=== PATIENT | female | born 1960 | race Caucasian/White ===

== ENCOUNTER 2017-04-19 08:58 | Emergency (ER) | payer BC ==
[2017-04-19 09:11] VITALS: BP 141/73
--- NOTE | 2017-04-19 09:35 | UC ---
Respiratory Complaint HPI - HPI Summary HPI Summary: Sudden onset fever and shaking chills 2 nights ago about midnight; also has coughing, nasal congestion, st, and 2 episodes of vomiting. Hx of COPD. - History of Current Complaint Chief Complaint: UCGeneralIllness Stated Complaint: HEADACHE FEVER VOMITING Time Seen by Provider: 04/19/17 09:22 Hx Obtained From: Patient ?: No Onset/Duration: Sudden Onset Timing: Constant Severity Initially: Moderate Severity Currently: Moderate Character: Cough: Productive Aggravating Factors: Deep Breaths, Recumbent Position Alleviating Factors: Bronchodilator Associated Signs And Symptoms: Positive: Wheezing, URI, Nasal Congestion - Allergies/Home Medications Allergies/Adverse Reactions: Allergies Allergy/AdvReac Type Severity Reaction Status Date / Time Naproxen [From Aleve] Allergy Severe RASH AND Verified 04/19/17 09:07 DIFF. BREATHING ADHESIVE FROM NICODERM PATCH AdvReac Mild Rash Uncoded 04/19/17 09:07 PMH/Surg Hx/FS Hx/Imm Hx Cardiovascular History: Hypertension Respiratory History: COPD, Asthma - Surgical History Surgical History: Yes Surgery Procedure, Year, and Place: ADRENAL GLAND TUMOR REMOVED. . APPENDECTOMY - Family History Known Family History: Positive: Hypertension - Social History Lives: With Family Alcohol Use: None Substance Use Type: None Smoking Status (MU): Current Every Day Smoker Type: Cigarettes Amount Used/How Often: 1/2 ppd Length of Time of Smoking/Using Tobacco: start age 15 Have You Smoked in the Last Year: Yes Cessation Counseling: Patient Advised to Stop - Immunization History Most Recent Influenza Vaccination: Jun 2013 Most Recent Tetanus Shot: remote Most Recent Pneumonia Vaccination: never Review of Systems Constitutional: Fever, Chills, Fatigue Skin: Negative Eyes: Negative ENT: Sore Throat, Nasal Discharge Respiratory: Cough Cardiovascular: Negative Gastrointestinal: Vomiting Genitourinary: Negative Motor: Negative Neurovascular: Negative Musculoskeletal: Negative Neurological: Negative Psychological: Negative Is Patient Immunocompromised?: No All Other Systems Reviewed And Are Negative: Yes Physical Exam Triage Information Reviewed: Yes Appearance: Ill-Appearing - acute illness, Obese Vital Signs: Initial Vital Signs Temp 99 F 04/19/17 09:08 Pulse 99 04/19/17 09:08 Resp 20 04/19/17 09:08 BP 141/73 04/19/17 09:08 Pulse Ox 100 12/10/17 09:08 Vital Signs Reviewed: Yes Eye Exam: Normal Eyes: Positive: Conjunctiva Clear ENT: Positive: Hearing grossly normal, Pharynx normal, Nasal congestion, TMs normal Dental Exam: Other - dentures Neck exam: Normal Neck: Positive: Supple, Nontender, No Lymphadenopathy Respiratory: Positive: Rhonchi - congested cough, Wheezing, Expiration Cardiovascular: Positive: Tachycardia, Murmur:Sys:Grade _?_/ - III Abdominal Exam: Other - exam limited by obesity Abdomen Description: Positive: Nontender Musculoskeletal Exam: Normal Neurological Exam: Normal Neurological: Positive: Alert Psychological Exam: Normal Skin Exam: Normal UC Diagnostic Evaluation - Laboratory O2 Sat by Pulse Oximetry: 100 Respiratory Course/Dx - Course Course Of Treatment: negative flu swab - Differential Dx/Diagnosis Provider Diagnoses: [id number] Discharge - Discharge Plan Condition: Stable Disposition: HOME Prescriptions: Albuterol 2.5MG/3ML (0.083%)* [Ventolin 2.5 MG/3 ML NEB.YOLY*] 2.5 mg INH Q6H PRN #40 neb.yoly PRN Reason: wheeze, cough Albuterol HFA INHALER* [Ventolin HFA Inhaler*] 1 - 2 puff INH Q4H PRN #1 mdi PRN Reason: wheeze, cough Patient Education Materials: Viral Syndrome (ED) Referrals: Jazmyne Oconnell PA [[employer]] - 5 Days Additional Instructions: Your flu swab was negative. You still have an [id number], however, so there is still a high chance you could have respiratory complications. Please see your primary care provider at the end of the week for a check-up.
== END 2017-04-19 10:05 | disposition home or self-care (01) ==
LOC: UCEAST 08:58
DX: J11.1 Influenza due to unidentified influenza virus with other respiratory manifestations (principal); F17.210 Nicotine dependence, cigarettes, uncomplicated; Z88.6 Allergy status to analgesic agent; I10 Essential (primary) hypertension; J44.9 Chronic obstructive pulmonary disease, unspecified
CPT/HCPCS: 87502; 99212; G0463

== ENCOUNTER 2017-09-02 19:13 | Emergency (ER) | payer BC ==
[2017-09-02] MEDS ORDERED: NS 0.9% 1000 ML* 1,000 ML IV ONE (20:13)
[2017-09-02] MEDS ORDERED: Aspirin 81 mg CHEW TAB* 81 MG TAB.CHEW PO ONE ×2 (20:13→20:20)
[2017-09-02] MEDS ORDERED: LORazepam TAB(*) 1 MG PO ONE (20:19)
--- NOTE | 2017-09-02 20:19 | ED ---
Palpitations / Dysrhythmia - HPI Summary HPI Summary: 57-year-old female with history of cardiac disease presents with 1 day worth of "heart racing". She states that she had an argument in the home the escalator last night about 2:30 AM and since that time she describes rapid heartbeat with occasional irregularity or skipping of beats. She now feels normal. She denies any chest pain or pressure and no shortness of breath. She denied any weakness however her states that she was feeling that way. She was feeling very anxious as well but that seems to have calmed down now as well. She does have a history of aortic valve replacement with a bovine valve. She is not on any blood thinner. She continues to smoke. She took a baby aspirin prior to coming to the ER. - History of Current Complaint Chief Complaint: EDChestPainROMI Time Seen by Provider: 09/02/17 20:03 - Allergy/Home Medications Allergies/Adverse Reactions: Allergies Allergy/AdvReac Type Severity Reaction Status Date / Time naproxen [From Aleve] Allergy Hives/Diff. Verified 09/02/17 19:23 Breathing/I tching ADHESIVE FROM NICODERM PATCH AdvReac Mild Rash Uncoded 09/02/17 19:23 Home Medications: Home Medications Aspirin EC TAB* [Ecotrin EC Low Dose 81 MG*] 81 mg PO DAILY 09/02/17 [History Confirmed 09/02/17] Bupropion XL* [Wellbutrin XL *] 150 mg PO QAM 09/02/17 [History Confirmed ] Citalopram TAB* [CeleXA TAB*] 40 mg PO QPM 09/02/17 [History Confirmed 09/02/17] Metoprolol Tartrate TAB* [Lopressor TAB*] 50 mg PO QAM 09/02/17 [History Confirmed 09/02/17] Simvastatin TAB(NF) [Zocor(NF)] 10 mg PO QPM 09/02/17 [History Confirmed ] PMH/Surg Hx/FS Hx/Imm Hx Previously Healthy: No - aortic valve replacement, hypertension, cardiac disease Endocrine/Hematology History: Reports: Other Endocrine/Hematological Disorders - Adrenal gland removed (left side?) Cardiovascular History: Reports: Hx Angina, Hx Hypertension - ON MEDICATION FOR , Hx Valvular Heart Disease - aortic valve relpaced 2013, Other Cardiovascular Problems/Disorders - HEART VALVE FUNCTIONING AT 20%- SEES DR. SIDHU FOR Denies: Hx Congestive Heart Failure, Hx Pacemaker/ICD Respiratory History: Reports: Hx Asthma - Symbicort, Hx Chronic Obstructive Pulmonary Disease (COPD) Denies: Other Respiratory Problems/Disorders History: Reports: Hx Kidney Infection - IN THE PAST, Other Problems/ Disorders - LEFT ADRENAL GLAND TUMOR REMOVED Sensory History: Reports: Hx Contacts or Glasses - reading Denies: Hx Hearing Aid Opthamlomology History: Reports: Hx Contacts or Glasses - reading Neurological History: Reports: Other Neuro Impairments/Disorders - HEADACHES DAILY Psychiatric History: Reports: Hx Depression - post-surgical - Surgical History Surgery Procedure, Year, and Place: ADRENAL GLAND TUMOR REMOVED. . APPENDECTOMY. LEFT FOOT - BONE REMOVAL. OPEN HEART SURGERY - VALVE REPLACEMENT Hx Anesthesia Reactions: No Infectious Disease History: No Infectious Disease History: Denies: Hx Clostridium Difficile, Hx Hepatitis, Hx Human Immunodeficiency Virus (HIV), Hx of Known/Suspected MRSA, Hx Shingles, Hx Tuberculosis, Hx Known/ Suspected VRE, Hx Known/Suspected VRSA, History Other Infectious Disease, Traveled Outside the [place] in Last 30 Days - Family History Known Family History: Positive: Hypertension - Social History Alcohol Use: None Substance Use Type: Reports: None Hx Tobacco Use: Yes Smoking Status (MU): Current Every Day Smoker Type: Cigarettes Amount Used/How Often: 1/2 ppd Length of Time of Smoking/Using Tobacco: start age 15 Have You Smoked in the Last Year: Yes Review of Systems Negative: Fever Positive: Palpitations. Negative: Chest Pain Negative: Shortness Of Breath, Cough Negative: Abdominal Pain, Vomiting, Diarrhea Negative: Arthralgia Positive: Weakness. Negative: Headache, Numbness Positive: Anxious. Negative: Depressed All Other Systems Reviewed And Are Negative: Yes Physical Exam Triage Information Reviewed: Yes Vital Signs On Initial Exam: Initial Vitals Temp Pulse Resp BP Pulse Ox 96.8 F 90 18 131/64 95 09/02/17 19:20 09/02/17 19:20 09/02/17 19:20 09/02/17 19:20 09/02/17 19:20 Vital Signs Reviewed: Yes Appearance: Positive: Well-Appearing, No Pain Distress, Well-Nourished Skin: Positive: Warm, Skin Color Reflects Adequate Perfusion, Dry Eyes: Positive: Normal, EOMI ENT: Positive: Normal ENT inspection Neck: Positive: Supple, Nontender, Other: - No JVD Cardiovascular: Positive: RRR, Murmur - Rumbling diastolic murmur Abdomen Description: Positive: Nontender, No Organomegaly Musculoskeletal: Positive: Normal, Strength/ROM Intact Neurological: Positive: Normal, Sensory/Motor Intact, Alert, Oriented to Person Place, Time, CN Intact II-III Psychiatric: Positive: Normal, Affect/Mood Appropriate. Negative: Anxious, Depressed AVPU Assessment: Alert Diagnostics - Vital Signs Vital Signs Temp Pulse Resp BP Pulse Ox 09/02/17 19:20 96.8 F 90 18 131/64 95 - Laboratory Result Diagrams: 09/02/17 20:07 09/02/17 20:07 Lab Statement: Any lab studies that have been ordered have been reviewed, and results considered in the medical decision making process. - Radiology CXR Xray Interpretation: No Acute Changes Radiology Interpretation Completed By: ED Physician - EKG EKG time 1909 Cardiac Rate: NL EKG Rhythm: Sinus Rhythm ST Segment: Non-Specific Ectopy: None EKG Interpretation: rate of 90, left bundle branch block. Re-Evaluation - Re-Evaluation First Eval Re-Evaluation Time: 22:23 Change: Improved - Symptoms resolved with oral Ativan Course/Dx - Course Course Of Treatment: Patient was situational stressor at home causing anxiety and resulting in fast heart rate. EKG and monitoring here showed no evidence for arrhythmia or tachycardia. He is feeling much better after Ativan. I will give her outpatient Vistaril for when necessary use. She is seeing her primary care physician on September 11. If she is having any palpitations in the interim suggested his Holter monitor. - Diagnoses Differential Diagnosis/HQI/PQRI: Positive: Chronic Obstructive Pulmonary Disease , Congestive Heart Failure, Hyperventilation, Medication Induced, Panic Disorder Provider Diagnoses: Anxiety reaction, Palpitations Discharge - Sign-Out/Discharge Documenting (check all that apply): Discharge/Admit/Transfer - Discharge Plan Condition: Improved Disposition: HOME Prescriptions: hydrOXYzine pamoate [Vistaril] 50 mg PO TID PRN #20 capsule PRN Reason: Anxiety Patient Education Materials: Anxiety (ED), Heart Palpitations (ED) Referrals: George SNOW,Rafi Mishra [Primary Care Provider] - Additional Instructions: Avoid the situational stressor at home. Return with chest pain, trouble breathing, worse or other concerns. See her doctor as scheduled on September 11 or call for an appointment sooner. If you're having palpitations her doctor may want to do a Holter monitor or event monitor. - Billing Disposition and Condition Condition: IMPROVED Disposition: HOME
[2017-09-02 20:36] LABS: ABS Basophils 0.2 10^3/ul (0-0.2); ABS Eosinophils 0.6 10^3/ul (0-0.6); ABS Lymphocytes 3.7 10^3/ul (1.0-4.8); ABS Monocytes 0.8 10^3/ul (0-0.8); ABS Neutrophils 8.6 10^3/ul (1.5-7.7); ABS Nucleated RBC 0 10^3/ul; Eosinophil % 4.1 % (0-6); Hematocrit 41 % (35-47); Hemoglobin 13.8 g/dl (12.0-16.0); Mean Corpuscular HGB Conc 34 g/dl (31-36); Mean Corpuscular Hemoglobin 31 pg (27-31); Mean Corpuscular Volume 91 fL (80-97); Mean Platelet Volume 8.8 um3 (7.4-10.4); Nucleated Red Blood Cells % 0; Platelet Count 215 10^3/ul (150-450); Red Blood Count 4.51 10^6/ul (4.0-5.4); Red Cell Distribution Width 14 % (10.5-15); White Blood Count 13.8 10^3/ul (3.5-10.8)
[2017-09-02 20:42] LABS: INR 1.04 (0.77-1.02)
[2017-09-02 22:55] VITALS: BP 139/77
--- NOTE | 2017-09-03 07:45 | RAD ---
HISTORY: Palpitation COMPARISONS: March 05, 2016 VIEWS: 1: frontal portable view of the chest at 10:11 PM FINDINGS: LINES AND TUBES: None. CARDIOMEDIASTINAL SILHOUETTE: The cardiomediastinal silhouette is stable. PLEURA: The costophrenic angles are sharp. No pleural abnormalities are noted. LUNG PARENCHYMA: The lungs are clear. ABDOMEN: The upper abdomen is clear. There is no subphrenic gas. BONES AND SOFT TISSUES: The patient is status post median sternotomy. 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 IMPRESSION: NO ACTIVE CARDIOPULMONARY DISEASE.
== END 2017-09-02 22:54 | disposition home or self-care (01) ==
LOC: ED 19:13
DX: R00.2 Palpitations (principal); F41.9 Anxiety disorder, unspecified; F17.210 Nicotine dependence, cigarettes, uncomplicated; Z86.79 Personal history of other diseases of the circulatory system; Z88.6 Allergy status to analgesic agent
CPT/HCPCS: 36415; 71045; 80053; 83605; 84443; 84484; 85025; 85610; 93005; 99283; A9270-GY

== ENCOUNTER 2017-10-04 21:50 | Inpatient (IN) | payer BC ==
[2017-10-04 22:44] LABS: ABS Basophils 0.2 10^3/ul (0-0.2); ABS Eosinophils 0.3 10^3/ul (0-0.6); ABS Lymphocytes 3.6 10^3/ul (1.0-4.8); ABS Monocytes 0.9 10^3/ul (0-0.8); ABS Neutrophils 8.4 10^3/ul (1.5-7.7); ABS Nucleated RBC 0 10^3/ul; Eosinophil % 2.1 % (0-6); Hematocrit 40 % (35-47); Hemoglobin 12.9 g/dl (12.0-16.0); Lymphocyte % 26.9 % (25-47); Mean Corpuscular HGB Conc 33 g/dl (31-36); Mean Corpuscular Hemoglobin 29 pg (27-31); Mean Corpuscular Volume 90 fL (80-97); Mean Platelet Volume 8.6 um3 (7.4-10.4); Nucleated Red Blood Cells % 0.1; Platelet Count 239 10^3/ul (150-450); Red Blood Count 4.43 10^6/ul (4.0-5.4); Red Cell Distribution Width 14 % (10.5-15); White Blood Count 13.4 10^3/ul (3.5-10.8)
[2017-10-04] MEDS ORDERED: ALPRAZolam TAB* 0.5 MG PO ONE (22:55)
[2017-10-04 23:00] LABS: INR 1.31 (0.77-1.02)
[2017-10-05] MEDS ORDERED: Furosemide IV* 10 MG/ML VIAL (40 MG) IV ONE (00:44)
--- NOTE | 2017-10-05 03:06 | ED ---
Ricki Metzger Julia, scribed for Alysa Palumbo MD on 10/04/17 at 2215 . Shortness of Breath - HPI Summary HPI Summary: This patient is a 57 year old F BIBA to [facility] with a chief complaint of SOB with exertion beginning this morning. Symptoms unchanged by nebulizer tx at home. Patient denies pain. PMhx of COPD. 2L of nasal cannula O2 placed by EMS. - History of Current Complaint Chief Complaint: EDShortnessOfBreath Time Seen by Provider: 10/04/17 22:04 Hx Obtained From: Patient Onset/Duration: Lasting Hours Timing: Constant Dyspnea At: Exertion Alleviating Factors: EMS Tx Associated Signs & Symptoms: Negative Related History: Similar Episode - Allergy/Home Medications Allergies/Adverse Reactions: Allergies Allergy/AdvReac Type Severity Reaction Status Date / Time bee venom protein (honey bee) Allergy Swelling Verified 10/04/17 22:05 Of Face,Lips,& Throat naproxen [From Aleve] Allergy Hives/Diff. Verified 10/04/17 22:05 Breathing/I tching adhesive from nicoderm Allergy Rash Uncoded 10/04/17 22:05 Home Medications: Home Medications Albuterol 2.5MG/3ML (0.083%)* [Ventolin 2.5 MG/3 ML NEB.YOLY*] 2.5 mg INH Q4H PRN 10/04/17 [History Confirmed 10/04/17] Albuterol HFA INHALER* [Ventolin HFA Inhaler*] 2 puff INH Q4H PRN 10/04/17 [ History Confirmed 10/04/17] Diazepam TAB(NF) [Valium TAB(NF)] 2 mg PO BID PRN 10/04/17 [History Confirmed ] PMH/Surg Hx/FS Hx/Imm Hx Endocrine/Hematology History: Reports: Other Endocrine/Hematological Disorders - Adrenal gland removed (left side?) Cardiovascular History: Reports: Hx Angina, Hx Hypertension - ON MEDICATION FOR , Hx Valvular Heart Disease - aortic valve relpaced 2013, Other Cardiovascular Problems/Disorders - HEART VALVE FUNCTIONING AT 20%- SEES DR. SIDHU FOR Denies: Hx Congestive Heart Failure, Hx Pacemaker/ICD Respiratory History: Reports: Hx Asthma - Symbicort, Hx Chronic Obstructive Pulmonary Disease (COPD) Denies: Other Respiratory Problems/Disorders History: Reports: Hx Kidney Infection - IN THE PAST, Other Problems/ Disorders - LEFT ADRENAL GLAND TUMOR REMOVED Sensory History: Reports: Hx Contacts or Glasses - reading Denies: Hx Hearing Aid Opthamlomology History: Reports: Hx Contacts or Glasses - reading Neurological History: Reports: Other Neuro Impairments/Disorders - HEADACHES DAILY Psychiatric History: Reports: Hx Depression - post-surgical - Surgical History Surgery Procedure, Year, and Place: ADRENAL GLAND TUMOR REMOVED. . APPENDECTOMY. LEFT FOOT - BONE REMOVAL. OPEN HEART SURGERY - VALVE REPLACEMENT Hx Anesthesia Reactions: No Infectious Disease History: No Infectious Disease History: Denies: Hx Clostridium Difficile, Hx Hepatitis, Hx Human Immunodeficiency Virus (HIV), Hx of Known/Suspected MRSA, Hx Shingles, Hx Tuberculosis, Hx Known/ Suspected VRE, Hx Known/Suspected VRSA, History Other Infectious Disease, Traveled Outside the [place] in Last 30 Days - Family History Known Family History: Positive: Hypertension - Social History Alcohol Use: None Substance Use Type: Reports: None Hx Tobacco Use: Yes Smoking Status (MU): Current Every Day Smoker Type: Cigarettes Amount Used/How Often: 1/2 ppd Length of Time of Smoking/Using Tobacco: start age 15 Have You Smoked in the Last Year: Yes Review of Systems Negative: Chest Pain Positive: Shortness Of Breath All Other Systems Reviewed And Are Negative: Yes Physical Exam - Summary Physical Exam Summary: VITAL SIGNS: Reviewed. GENERAL: Patient is a well-developed and nourished female who is lying comfortable in the stretcher. Patient is not in any acute respiratory distress. HEAD AND FACE: No signs of trauma. No ecchymosis, hematomas or skull depressions. No sinus tenderness. EYES: PERRLA, EOMI x 2, No injected conjunctiva, no nystagmus. EARS: Hearing grossly intact. Ear canals and tympanic membranes are within normal limits. MOUTH: Oropharynx within normal limits. NECK: Supple, trachea is midline, no adenopathy, no JVD, no carotid bruit, no c- spine tenderness, neck with full ROM. CHEST: Symmetric, no tenderness at palpation LUNGS: Clear to auscultation bilaterally. No wheezing or crackles. CVS: Regular rate and rhythm, S1 and S2 present, no murmurs or gallops appreciated. ABDOMEN: Soft, non-tender. No signs of distention. No rebound no guarding, and no masses palpated. Bowel sounds are normal. EXTREMITIES: FROM in all major joints, no edema, no cyanosis or clubbing. NEURO: Alert and oriented x 3. No acute neurological deficits. Speech is normal and follows commands. SKIN: Dry and warm Triage Information Reviewed: Yes Vital Signs On Initial Exam: Initial Vitals Temp Pulse Resp BP Pulse Ox 98.2 F 75 27 121/62 97 10/04/17 22:01 10/04/17 22:01 10/04/17 22:01 10/04/17 22:01 10/04/17 22:01 Vital Signs Reviewed: Yes Diagnostics - Vital Signs Vital Signs Temp Pulse Resp BP Pulse Ox 10/04/17 22:01 98.2 F 75 27 121/62 97 - Laboratory Lab Results: Lab Results 10/04/17 10/04/17 10/04/17 Range/Units 22:35 22:35 22:35 WBC 13.4 H (3.5-10.8) 10^3/ul RBC 4.43 (4.0-5.4) 10^6/ul Hgb 12.9 (12.0-16.0) g/dl Hct 40 (35-47) % MCV 90 (80-97) fL MCH 29 (27-31) pg MCHC 33 (31-36) g/dl RDW 14 (10.5-15) % Plt Count 239 (150-450) 10^3/ul MPV 8.6 (7.4-10.4) um3 Neut % (Auto) 62.9 (38-83) % Lymph % (Auto) 26.9 (25-47) % Archuleta % (Auto) 6.9 (0-7) % Eos % (Auto) 2.1 (0-6) % Baso % (Auto) 1.2 (0-2) % Absolute Neuts (auto) 8.4 H (1.5-7.7) 10^3/ul Absolute Lymphs (auto) 3.6 (1.0-4.8) 10^3/ul Absolute Monos (auto) 0.9 H (0-0.8) 10^3/ul Absolute Eos (auto) 0.3 (0-0.6) 10^3/ul Absolute Basos (auto) 0.2 (0-0.2) 10^3/ul Absolute Nucleated RBC 0 10^3/ul Nucleated RBC % 0.1 INR (Anticoag Therapy) 1.31 H (0.77-1.02) APTT 29.0 (26.0-36.3) seconds Sodium 134 L (139-145) mmol/L Potassium 4.3 (3.5-5.0) mmol/L Chloride 106 (101-111) mmol/L Carbon Dioxide 19 L (22-32) mmol/L Anion Gap 9 (2-11) mmol/L BUN 19 (6-24) mg/dL Creatinine 0.77 (0.51-0.95) mg/dL Est GFR ( Amer) 99.0 (>60) Est GFR (Non-Af Amer) 77.0 (>60) BUN/Creatinine Ratio 24.7 H (8-20) Glucose 103 H (70-100) mg/dL Lactic Acid (0.5-2.0) mmol/L Calcium 8.8 (8.6-10.3) mg/dL Magnesium 2.3 (1.9-2.7) mg/dL Total Bilirubin 1.10 H (0.2-1.0) mg/dL AST 38 (13-39) U/L ALT 42 (7-52) U/L Alkaline Phosphatase 87 (34-104) U/L Troponin I 0.05 H* (<0.04) ng/mL B-Natriuretic Peptide ( - 100) pg/mL Total Protein 7.2 (6.4-8.9) g/dL Albumin 3.6 (3.2-5.2) g/dL Globulin 3.6 (2-4) g/dL Albumin/Globulin Ratio 1.0 (1-3) 10/04/17 10/04/17 Range/Units 22:35 22:35 WBC (3.5-10.8) 10^3/ul RBC (4.0-5.4) 10^6/ul Hgb (12.0-16.0) g/dl Hct (35-47) % MCV (80-97) fL MCH (27-31) pg MCHC (31-36) g/dl RDW (10.5-15) % Plt Count (150-450) 10^3/ul MPV (7.4-10.4) um3 Neut % (Auto) (38-83) % Lymph % (Auto) (25-47) % Archuleta % (Auto) (0-7) % Eos % (Auto) (0-6) % Baso % (Auto) (0-2) % Absolute Neuts (auto) (1.5-7.7) 10^3/ul Absolute Lymphs (auto) (1.0-4.8) 10^3/ul Absolute Monos (auto) (0-0.8) 10^3/ul Absolute Eos (auto) (0-0.6) 10^3/ul Absolute Basos (auto) (0-0.2) 10^3/ul Absolute Nucleated RBC 10^3/ul Nucleated RBC % INR (Anticoag Therapy) (0.77-1.02) APTT (26.0-36.3) seconds Sodium (139-145) mmol/L Potassium (3.5-5.0) mmol/L Chloride (101-111) mmol/L Carbon Dioxide (22-32) mmol/L Anion Gap (2-11) mmol/L BUN (6-24) mg/dL Creatinine (0.51-0.95) mg/dL Est GFR ( Amer) (>60) Est GFR (Non-Af Amer) (>60) BUN/Creatinine Ratio (8-20) Glucose (70-100) mg/dL Lactic Acid 1.2 (0.5-2.0) mmol/L Calcium (8.6-10.3) mg/dL Magnesium (1.9-2.7) mg/dL Total Bilirubin (0.2-1.0) mg/dL AST (13-39) U/L ALT (7-52) U/L Alkaline Phosphatase (34-104) U/L Troponin I (<0.04) ng/mL B-Natriuretic Peptide 2302 H ( - 100) pg/mL Total Protein (6.4-8.9) g/dL Albumin (3.2-5.2) g/dL Globulin (2-4) g/dL Albumin/Globulin Ratio (1-3) Result Diagrams: 10/04/17 22:35 10/04/17 22:35 Lab Statement: Any lab studies that have been ordered have been reviewed, and results considered in the medical decision making process. - Radiology CXR Radiology Interpretation Completed By: ED Physician - CHF - EKG 3412 Cardiac Rate: NL EKG Rhythm: Sinus Rhythm - 75 BPM EKG Interpretation: LBBB Re-Evaluation - Re-Evaluation 1 Re-Evaluation Time: 10:55 Change: Improved - Pt is able to walk two laps around ED with SaO2 of 97 %. Course/Dx - Course Course Of Treatment: 57 year old F [facility]IB[facility] to [facility] with a chief complaint of SOB with exertion beginning this morning. Symptoms unchanged by nebulizer tx at home. Patient denies pain. PMhx of COPD. 2L of nasal cannula O2 placed by EMS. Patient is albe to walk two laps around ED with SaO2 of 97%. Patient is given Xanax and Lasix. CXR indicative of CHF. EKG reveals LBBB. Lab work reveals a troponin of 0.05. Patient refused ABG. Dr. Jones agrees to admit patient. Patient is informed with results and is agreeable with plan. - Diagnoses Provider Diagnoses: CHF (congestive heart failure) - Physician Notifications Discussed Care of Patient With: Jesus Jones - hospitalist Time Discussed With Above Provider: 00:52 Instructed by Provider To: Admit As Inpatient Discharge - Sign-Out/Discharge Documenting (check all that apply): Discharge/Admit/Transfer - admit - Discharge Plan Condition: Fair Disposition: ADMITTED TO [facility] Referrals: George SNOW,Rafi Mishra [Primary Care Provider] - - Billing Disposition and Condition Condition: FAIR Disposition: HOSP-[facility] The documentation as recorded by the Ricki luna Julia accurately reflects the service I personally performed and the decisions made by , Alysa Palumbo MD.
[2017-10-05] MEDS ORDERED: Albuterol 2.5 MG/3 ML NEB.SOL* (0.083%) INH PRN ×2 (04:29→04:35)
[2017-10-05] MEDS ORDERED: Acetaminophen TAB* 325 MG PO PRN (04:35)
[2017-10-05] MEDS ORDERED: Melatonin (NF) 3 MG TAB PO PRN (04:35)
--- NOTE | 2017-10-05 04:35 | HP ---
H&P (Free Text) History and Physical: PCP: Omar Vazquez MD Date/Time: 10/05/2017 0420 CC: SOB w/ exertion HPI: Mrs Mccall is a 57YO female HX bovine AVR, CAD, COPD, asthma, HTN, HLD, & depression presents with 1 month of exertional SOB for which she was seen here, DX'd with a panic attack, and prescribed hydroxyzine which her PCP felt was interacting with her citalopram and changed it to diazepam while adding bupropion - neither of which has she started. Rather, she decided to quit the hydroxyzine 4 days ago and feels no better prompting her to present for further evaluation. Work up is most notable for a BNP of 2300 & troponin of 0.05. ECG is sinus LBBB (old). CXR shows no acute finding. PMedHx asthma CAD HTN HLD COPD depression/anxiety aortic stenosis s/p bovine AVR Ambulatory Orders Aspirin EC TAB* [Ecotrin EC Low Dose 81 MG*] 81 mg PO DAILY 09/02/17 Bupropion XL* [Wellbutrin XL *] 150 mg PO QAM 09/02/17 Citalopram TAB* [CeleXA TAB*] 40 mg PO QPM 09/02/17 Metoprolol Tartrate TAB* [Lopressor TAB*] 50 mg PO QAM 09/02/17 Simvastatin TAB(NF) [Zocor(NF)] 10 mg PO QPM 09/02/17 Albuterol 2.5MG/3ML (0.083%)* [Ventolin 2.5 MG/3 ML NEB.YOLY*] 2.5 mg INH Q4H PRN 10/04/17 Albuterol HFA INHALER* [Ventolin HFA Inhaler*] 2 puff INH Q4H PRN 10/04/17 Diazepam TAB(NF) [Valium TAB(NF)] 2 mg PO BID PRN 10/04/17 Allergies bee venom protein (honey bee) Allergy (Verified 10/04/17 22:05) Swelling Of Face,Lips,& Throat naproxen [From Aleve] Allergy (Verified 10/04/17 22:05) Hives/Diff.Breathing/Itching adhesive from nicoderm Allergy (Uncoded 10/04/17 22:05) Rash PSurgHx bovine AVR partial L nephrectomy (benign) appendectomy section SocHx: 1PPD cigarettes with ~40PYHX, no alcohol or recreational drugs; lives with her ; full code status FamHx: Mother: alive at 83 w/ DM2 & CAD; Father: passed at 49 of CAD/MN; Sister 1: passed in her 40s of lung CA; Sister 2: alive w/ COPD; sister 3: alive w/ colon CA; Brothers x3: alive w/o known illness ROS: as above, otherwise reviewed and all were negative vitals: Vital Signs Temp 36.8 C 10/04/17 22:01 Pulse 75 10/05/17 03:02 Resp 20 10/05/17 03:02 BP 108/61 10/05/17 03:02 Pulse Ox 95 10/05/17 03:02 Intake & Output 10/04/17 10/04/17 10/05/17 11:59 23:59 11:59 Weight 76.657 kg Constitutional: NAD, normally developed, obese white female HEENM: atraumatic; sclera/conjunctiva: anicteric/clear; hearing: clinically intact; oropharynx: clear, mucosa moist Neck: soft tissue: non-tender; thyroid: normal Pulmonary: scant bibasilar cellophane crackles, fair to good aeration, no accessory muscle use CV: RR/RR, normal S1S2, no carotid bruit, no jugular venous distention, 2+ B DP/ PT, no edema Abdominal: soft, non-distended, non-tender, no rebound/guarding/rigidity, normoactive bowel sounds, no hepatosplenomegaly or masses, no costovertebral angle tenderness Musculoskeletal: general: grossly intact, non-tender; gait: stable Integumental: normal appearance and texture of exposed skin Psychiatric orientation: AA&O to PPS affect: calm mood: cooperative eye contact: good content: reliable responses: full sentences insight: fair to good Testing: Lab Results 10/04/17 10/04/17 10/04/17 Range/Units 22:35 22:35 22:35 WBC 13.4 H (3.5-10.8) 10^3/ul RBC 4.43 (4.0-5.4) 10^6/ul Hgb 12.9 (12.0-16.0) g/dl Hct 40 (35-47) % MCV 90 (80-97) fL MCH 29 (27-31) pg MCHC 33 (31-36) g/dl RDW 14 (10.5-15) % Plt Count 239 (150-450) 10^3/ul MPV 8.6 (7.4-10.4) um3 Neut % (Auto) 62.9 (38-83) % Lymph % (Auto) 26.9 (25-47) % Apache % (Auto) 6.9 (0-7) % Eos % (Auto) 2.1 (0-6) % Baso % (Auto) 1.2 (0-2) % Absolute Neuts (auto) 8.4 H (1.5-7.7) 10^3/ul Absolute Lymphs (auto) 3.6 (1.0-4.8) 10^3/ul Absolute Monos (auto) 0.9 H (0-0.8) 10^3/ul Absolute Eos (auto) 0.3 (0-0.6) 10^3/ul Absolute Basos (auto) 0.2 (0-0.2) 10^3/ul Absolute Nucleated RBC 0 10^3/ul Nucleated RBC % 0.1 INR (Anticoag Therapy) 1.31 H (0.77-1.02) APTT 29.0 (26.0-36.3) seconds Sodium 134 L (139-145) mmol/L Potassium 4.3 (3.5-5.0) mmol/L Chloride 106 (101-111) mmol/L Carbon Dioxide 19 L (22-32) mmol/L Anion Gap 9 (2-11) mmol/L BUN 19 (6-24) mg/dL Creatinine 0.77 (0.51-0.95) mg/dL Est GFR ( Amer) 99.0 (>60) Est GFR (Non-Af Amer) 77.0 (>60) BUN/Creatinine Ratio 24.7 H (8-20) Glucose 103 H (70-100) mg/dL Lactic Acid (0.5-2.0) mmol/L Calcium 8.8 (8.6-10.3) mg/dL Magnesium 2.3 (1.9-2.7) mg/dL Total Bilirubin 1.10 H (0.2-1.0) mg/dL AST 38 (13-39) U/L ALT 42 (7-52) U/L Alkaline Phosphatase 87 (34-104) U/L Troponin I 0.05 H* (<0.04) ng/mL B-Natriuretic Peptide ( - 100) pg/mL Total Protein 7.2 (6.4-8.9) g/dL Albumin 3.6 (3.2-5.2) g/dL Globulin 3.6 (2-4) g/dL Albumin/Globulin Ratio 1.0 (1-3) 10/04/17 10/04/17 Range/Units 22:35 22:35 WBC (3.5-10.8) 10^3/ul RBC (4.0-5.4) 10^6/ul Hgb (12.0-16.0) g/dl Hct (35-47) % MCV (80-97) fL MCH (27-31) pg MCHC (31-36) g/dl RDW (10.5-15) % Plt Count (150-450) 10^3/ul MPV (7.4-10.4) um3 Neut % (Auto) (38-83) % Lymph % (Auto) (25-47) % Apache % (Auto) (0-7) % Eos % (Auto) (0-6) % Baso % (Auto) (0-2) % Absolute Neuts (auto) (1.5-7.7) 10^3/ul Absolute Lymphs (auto) (1.0-4.8) 10^3/ul Absolute Monos (auto) (0-0.8) 10^3/ul Absolute Eos (auto) (0-0.6) 10^3/ul Absolute Basos (auto) (0-0.2) 10^3/ul Absolute Nucleated RBC 10^3/ul Nucleated RBC % INR (Anticoag Therapy) (0.77-1.02) APTT (26.0-36.3) seconds Sodium (139-145) mmol/L Potassium (3.5-5.0) mmol/L Chloride (101-111) mmol/L Carbon Dioxide (22-32) mmol/L Anion Gap (2-11) mmol/L BUN (6-24) mg/dL Creatinine (0.51-0.95) mg/dL Est GFR ( Amer) (>60) Est GFR (Non-Af Amer) (>60) BUN/Creatinine Ratio (8-20) Glucose (70-100) mg/dL Lactic Acid 1.2 (0.5-2.0) mmol/L Calcium (8.6-10.3) mg/dL Magnesium (1.9-2.7) mg/dL Total Bilirubin (0.2-1.0) mg/dL AST (13-39) U/L ALT (7-52) U/L Alkaline Phosphatase (34-104) U/L Troponin I (<0.04) ng/mL B-Natriuretic Peptide 2302 H ( - 100) pg/mL Total Protein (6.4-8.9) g/dL Albumin (3.2-5.2) g/dL Globulin (2-4) g/dL Albumin/Globulin Ratio (1-3) ECG, personally reviewed: sinus LBBB rate 75, no ischemia CXR, personally reviewed: no acute process Impression: 57F HX bovine AVR, CAD, COPD, asthma, HTN, HLD, & depression presents with new onset CHF DIAGNOSIS & PLAN Primary acute systolic HF : telemetry : furosemide diuresis : strict I&Os : daily weights : supplemental oxygen : supportive care elevated troponin : suspect 2nd demand ischemia : telemetry : trend Secondary asthma COPD : smoking cessation advised, low motivation : continue albuterol CAD : continue aspirin, metoprolol, & simvastatin HTN : continue metoprolol HLD : continue simvastatin depression/anxiety : continue bupropion, citalopram : hold diazepam HX aortic stenosis s/p bovine AVR Admission Rational: inpatient for CHF not anticipated to be adequately resolved w/i 48h to allow for discharge DVTp: SCDs & heparin SQ Code Status: full HCP:
[2017-10-05] MEDS ORDERED: Ondansetron ODT TAB* 4 MG PO PRN (04:36)
[2017-10-05 05:46] LABS: ABS Basophils 0.2 10^3/ul (0-0.2); ABS Eosinophils 0.3 10^3/ul (0-0.6); ABS Lymphocytes 3.8 10^3/ul (1.0-4.8); ABS Monocytes 1.1 10^3/ul (0-0.8); ABS Neutrophils 8.3 10^3/ul (1.5-7.7); ABS Nucleated RBC 0 10^3/ul; Eosinophil % 2.3 % (0-6); Hematocrit 37 % (35-47); Hemoglobin 12.3 g/dl (12.0-16.0); Mean Corpuscular HGB Conc 33 g/dl (31-36); Mean Corpuscular Hemoglobin 30 pg (27-31); Mean Corpuscular Volume 90 fL (80-97); Mean Platelet Volume 8.5 um3 (7.4-10.4); Nucleated Red Blood Cells % 0.2; Platelet Count 225 10^3/ul (150-450); Red Blood Count 4.17 10^6/ul (4.0-5.4); Red Cell Distribution Width 14 % (10.5-15); White Blood Count 13.8 10^3/ul (3.5-10.8)
[2017-10-05 05:54] LABS: INR 1.39 (0.77-1.02)
[2017-10-05] MEDS ORDERED: Omeprazole CAP* 20 MG PO SCH (06:00)
[2017-10-05 06:23] LABS: EGFR Non-African American 64.3 (>60)
--- NOTE | 2017-10-05 07:48 | RAD ---
HISTORY: Shortness of breath COMPARISONS: September 02, 2017 VIEWS: 1: frontal portable view of the chest at 10:23 PM FINDINGS: LINES AND TUBES: None. CARDIOMEDIASTINAL SILHOUETTE: The cardiomediastinal silhouette is stable. PLEURA: The costophrenic angles are sharp. No pleural abnormalities are noted. LUNG PARENCHYMA: There is prominence of the central pulmonary vasculature. There is a mild reticular pattern at the lung bases bilaterally. ABDOMEN: The upper abdomen is clear. There is no subphrenic gas. BONES AND SOFT TISSUES: The patient is status post median sternotomy. IMPRESSION: PULMONARY VASCULAR CONGESTION WITH MILD INTERSTITIAL EDEMA
[2017-10-05] MEDS: Furosemide IV* 10 MG/ML VIAL (40 MG) IV SCH ×2 (08:39→13:43)
[2017-10-05] MEDS ORDERED: Aspirin EC TAB* 81 MG TAB.EC PO SCH (09:00)
[2017-10-05] MEDS ORDERED: BuPROPion XL* 150 MG TAB.XL PO SCH (09:00)
[2017-10-05] MEDS ORDERED: Metoprolol Tartrate TAB* 50 mg PO SCH (09:00)
[2017-10-05] MEDS ORDERED: Docusate CAP* 100 MG PO SCH (09:00)
--- NOTE | 2017-10-05 12:17 | ECHO ---
Amended Report Patient: BRENTON LUO [facility] Rec#: [id number] : 1960 Date: 10/05/2017 Age: 57y Height: 152.4 cm / 60.0 in Weight: 77.11 kg / 170.0 lbs Sex: F BSA: 1.74 Room#: [facility] Admit Date#: 10/05/2017 Type: Inpatient Referring: Jesus Jones MD Reading: Angel Alarcon MD Emt I/99: Lenora Jones,MITUL,RDMS CC: Rafi Vazquez MD Transthoracic Echocardiogram Indication: Dyspnea on exertion BP: 130/63 HR: 79 Rhythm: NSR Findings History: Bovine AVR, CAD, COPD, HTN, HLD Technical Comments: The study quality is good. Left Ventricle: The left ventricular chamber size is normal. Mild concentric left ventricular hypertrophy is observed. Basal interventricular septum shows moderate thickening. The estimated ejection fraction is 55-60%. There is no consistent Doppler evidence of clinically significant diastolic dysfunction. The patient was unable to perform a Valsalva maneuver. Left Atrium: The left atrium is moderate to severely dilated. Right Ventricle: The right ventricular chamber size and systolic function are within normal limits. The right ventricle wall thickness is mildly increased. Right Atrium: The right atrium is mild to moderately dilated. Aortic Valve: There is mild to moderate aortic regurgitation. The mean gradient of the aortic valve is 49 mmHg. The aortic valve area, by peak velocities, is calculated at 0.7 cm2. Highest aortic valve velocity was acquired with Pedoff in suprasternal notch position. A bovine bio-prosthetic aortic valve is present. The prosthetic aortic valve leaflets are thickened. The bio-prosthetic aortic valve appears stenotic. Mitral Valve: There is mitral annular calcification. The mitral valve leaflets are mildly thickened. Mitral valve leaflet mobility is mildly restricted. There is moderate to severe mitral regurgitation. probably severe There is mild mitral stenosis. Pulmonary vein flow reversal is present. Tricuspid Valve: The tricuspid valve leaflets are normal. There is severe tricuspid regurgitation. There is evidence of moderate to severe pulmonary hypertension. Pulmonic Valve: There is no evidence of pulmonic valve thickening. There is trace to mild pulmonic regurgitation. Pericardium: There is no significant pericardial effusion. Aorta: The aortic root appears normal. The aortic arch is not well visualized. Pulmonary Artery: The main pulmonary artery appears normal. Venous: The inferior vena cava is dilated. There is no change in the dimension of the inferior vena cava with respiration consistent with markedly increased right atrial pressure. The flow patterns of the inferior vena cava is consistent with systolic flow reversal suggestive of severe tricuspid regurgitation. Summary: There are changes noted when compared to the previous study done on 09/12/2014, there is increase in AI from trace then.Increase in from mild then. MR is new now. Increase in Tr from trace then. PHTN is new. Conclusions The left ventricular chamber size is normal. Mild concentric left ventricular hypertrophy is observed. Basal interventricular septum shows moderate thickening. The estimated ejection fraction is 55-60%. The left atrium is moderate to severely dilated. The right atrium is mild to moderately dilated. There is mild to moderate aortic regurgitation. The mean gradient of the aortic valve is 49 mmHg. The aortic valve area, by peak velocities, is calculated at 0.7 cm2. A bovine bio-prosthetic aortic valve is present. The bio-prosthetic aortic valve appears stenotic. There is moderate to severe mitral regurgitation. probably severe There is mild mitral stenosis. Pulmonary vein flow reversal is present. There is severe tricuspid regurgitation. There is evidence of moderate to severe pulmonary hypertension. There are changes noted when compared to the previous study done on 09/12/2014, there is increase in AI from trace then.Increase in from mild then. MR is new now. Increase in Tr from trace then. PHTN is new. 10.05.2014 3:45 PM. I discussed the echo report with Dr Dugan via phone . Measurements Name Value Normal Range RVIDd (AP) 2D 2.8 cm (0.9 - 2.6) RVDdMajor (2D) 3.4 cm (2.2 - 4.4) RAd ISD 4CH 5.6 cm (3.4 - 4.9) RA (A4C)W 4.3 cm (2.9 - 4.6) IVSd (2D) 1.7 cm (0.6 - 1) LVPWd (2D) 1.2 cm (0.6 - 1) LVIDd (2D) 3.8 cm (3.6 - 5.4) LVIDs (2D) 3 cm - LV FS (2D) 21 % (25 - 45) Aortic Annulus 1.9 cm (1.4 - 2.6) Ao root diameter (2D) 2.3 cm (2.1 - 3.5) Ascending Ao 2.9 cm (2.1 - 3.4) LA dimension (AP) 2D 4.8 cm (2.3 - 3.8) LAd ISD 4CH 6.3 cm (2.9 - 5.3) LA ISD 4CH W 4.6 cm (2.5 - 4.5) Name Value Normal Range LA ESV SP 4CH (A/L) 74.68 ml - LA ESV SP 2CH (A/L) 64.46 ml - LA ESV BP (A/L) 70.73 ml - LA ESV BP (A/L) index 41 ml/m2 - LA ESV SP 4CH (MOD) 69.18 ml - LA ESV SP 2CH (MOD) 61.2 ml - Name Value Normal Range MV E-wave Vmax 1 m/sec - MV deceleration time 164 msec - MV A-wave Vmax 0.4 m/sec - MV E:A ratio 2.5 ratio - LV septal e' Vmax 0.05 m/sec - LV lateral e' Vmax 0.08 m/sec - LV E:e' septal ratio 20 ratio - LV E:e' lateral ratio 13 ratio - Name Value Normal Range AV Vmax 4.8 m/sec - AV VTI 106 cm - AV peak gradient 92 mmHg - AV mean gradient 49 mmHg - LVOT diameter 1.8 cm - LVOT Vmax 1.4 m/sec - LVOT VTI 31 cm - LVOT peak gradient 8 mmHg - LVOT mean gradient 5 mmHg - DOI (VTI) 0.3 ratio - JOHANN (continuity Vmax) 0.7 cm2 - JOHANN (continuity VTI) 0.9 cm2 - AR PHT 322 msec - Name Value Normal Range MV Vmax 1.4 m/sec - MV VTI 29.4 cm - MV peak gradient 8 mmHg - MV mean gradient 2.6 mmHg - MV PHT 75 msec - MR Vmax 6.4 m/sec - MR VTI 192 cm - MR volume (PISA) 56 ml - MR flow (PISA) 202.91 ml/sec - MR ERO 2.9 cm2 - MR PISA radius 0.9 cm - MR alias Vmax 37 cm/sec - MVA (PHT) 2.9 cm2 - MVA (continuity VTI) 3 cm2 - Name Value Normal Range TR Vmax 3 m/sec - TR peak gradient 36 mmHg - RAP 20 mmHg - RVSP 56 mmHg - IVC diameter 2.3 cm -
[2017-10-05] MEDS ORDERED: PROCHLORPERAZINE INJ 5 MG/ML 2 ML VIAL IV PRN (13:21)
[2017-10-05 15:36] VITALS: BP 129/44
[2017-10-05] MEDS ORDERED: CMCS:Simvastatin TAB(NF) 10 MG TAB PO SCH (18:00)
[2017-10-05] MEDS ORDERED: Citalopram TAB* 40 MG PO SCH (18:00)
--- NOTE | 2017-10-05 23:18 | TRS ---
CC: Dr. Angel Alarcon; Dr. Jones; Dr. Alysa Palumbo; Dr. Rafi Vazquez TRANSFER SUMMARY: DATE OF ADMISSION: 10/05/17 DATE OF TRANSFER: 10/05/17 DISCHARGE/TRANSFER DIAGNOSES: 1. Congestive heart failure exacerbation likely secondary to severe bioprosthetic aortic valve stenosis with surface area of 0.7 sq. cm. 2. Elevated troponins, likely secondary to demand ischemia, likely due to above. 3. History of chronic obstructive pulmonary disease and asthma. 4. History of hypertension. 5. History of depression and/or anxiety. HISTORY OF PRESENT ILLNESS/HOSPITAL COURSE: The patient is a 57-year-old lady with history of bovine aortic valve replacement, CAD, and COPD/ asthma, who mentioned that for the past 1 month [employer], she developed exertional shortness of breath for which she was seen on admission on 10/05/17. She was previously diagnosed with panic attack and prescribed hydroxyzine, which her PCP felt was interacting with her citalopram. Then, once again, this was changed to diazepam while adding bupropion, neither of which she has started prior to this admission. She decided to quit hydroxyzine 4 days prior to admission and feels no better prompting her to present in the ED that led to her admission. She was diagnosed with new-onset CHF, which she mentions that she has not been diagnosed before and an echocardiogram was done and was read by Dr. Alarcon, which reveals an EF of 55% to 60% with mild concentric left ventricular hypertrophy. The mean gradient of aortic valve is 49 mmHg and the aortic valve area by peak velocity is calculated to be 0.[address] Angel Alarcon, the patient will need an immediate referral and/or transfer to a facility with Cardiovascular Surgery capabilities. Given the patient has been followed up by Dr. Hopper of [facility], I have spoken with the transfer center, who mentions that they do have a bed, but I am currently awaiting acceptance and call for discussion of the case with the hospitalist team. ADDENDUM: Have spoken with Dr. Tillman of the hospitalist team of [facility] who has accepted the patient for transfer with F/U consultation with Cardiovascular surgery as discussed. REVIEW OF SYSTEMS: The patient complains of dyspnea on exertion, otherwise with no chest pain or shortness of breath at rest. Denied any headache, dizziness, fever, chills, nausea, vomiting, chest pain, increased cough, sputum production, abdominal pain, diarrhea, constipation, pain and/or increased frequency on urination, myalgias, arthralgias, throat pain, or new skin lesions. The rest of the 14-point review of systems is otherwise unremarkable. PHYSICAL EXAMINATION: Reveals the most recent vital signs of record with temperature of 97.8 degrees Fahrenheit, 74 beats per minute heart rate, 20 per minute respiratory rate, blood pressure of 111/64, saturating at 99% on room air. General Appearance: The patient is awake, alert, and oriented x3, not in acute distress. HEENT: Normocephalic, atraumatic. PERRLA. Extraocular muscles intact. Negative for icterus. Moist oral mucosa. Negative throat erythema. Neck: Soft, supple with no cervical lymphadenopathy. Positive for JVD. Positive for hepatojugular reflux. Heart: S1, S2 within normal limits. Regular rate and rhythm. No murmurs, rubs, or gallops. Chest was clear to auscultation bilaterally with good air entry. No wheezes, rales, or rhonchi. Abdomen is soft, nondistended, and nontender. Normoactive bowel sounds x4. Extremities: No cyanosis, clubbing, or edema. Psychiatric: No active psychosis, depression, suicidal or homicidal ideations. Skin is warm to touch. TRANSFER MEDICATIONS (will defer with [facility] team for any further changes): 1. Tylenol 650 p.o. q.6 p.r.n. 2. Albuterol nebulization 2.5 mg inhalation q.4 hours p.r.n. 3. Aspirin 81 mg p.o. daily. 4. Bupropion 150 mg p.o. q.a.m. 5. Citalopram 40 mg p.o. q.p.m. 6. Colace 200 mg p.o. b.i.d. 7. Lasix 40 mg IV b.i.d. 8. Heparin 5000 units subcu q.8 hours. 9. Melatonin 3 mg p.o. q.h.s. 10. Metoprolol 50 mg q.a.m. 11. Prochlorperazine 5 mg IV q.6 p.r.n. 12. Simvastatin 10 mg p.o. q.p.m. TIME SPENT: The total time spent evaluating the patient, reviewing pertinent data, and appropriate documentation is greater than 30 minutes. [id number] #: [id number] MTDD
[2017-10-06] MEDS ORDERED: Heparin VIAL(*) 5000 UNITS/ML VIAL (FIVE THOUSAND) SUBCUT SCH (06:00)
== END 2017-10-05 19:32 | disposition short-term general hospital (02) | DRG 194 ==
LOC: ED 21:50 → MEDTELE 10-05 04:28
PROVIDERS: ADMIT Hospitalist; ATTEND Student in an Organized Health Care Education/Training Program
DX: I11.0 Hypertensive heart disease with heart failure (principal); T82.858A Stenosis of other vascular prosthetic devices, implants and grafts, initial encounter; I24.8 Other forms of acute ischemic heart disease; I50.21 Acute systolic (congestive) heart failure; I25.10 Atherosclerotic heart disease of native coronary artery without angina pectoris; F17.210 Nicotine dependence, cigarettes, uncomplicated; J44.9 Chronic obstructive pulmonary disease, unspecified; E78.5 Hyperlipidemia, unspecified; F32.9 Major depressive disorder, single episode, unspecified; F41.9 Anxiety disorder, unspecified; X58.XXXA Exposure to other specified factors, initial encounter; R74.8 Abnormal levels of other serum enzymes; Z95.3 Presence of xenogenic heart valve; Z79.82 Long term (current) use of aspirin; Z79.899 Other long term (current) drug therapy; Z91.030 Bee allergy status; Z88.8 Allergy status to other drugs, medicaments and biological substances; Z91.048 Other nonmedicinal substance allergy status; Z83.3 Family history of diabetes mellitus; Z82.49 Family history of ischemic heart disease and other diseases of the circulatory system; Z80.1 Family history of malignant neoplasm of trachea, bronchus and lung; Z80.0 Family history of malignant neoplasm of digestive organs; Z82.5 Family history of asthma and other chronic lower respiratory diseases
CPT/HCPCS: 36415; 71045; 80048; 80053; 83605; 83735; 83880; 84484; 85025; 85610; 85730; 93005; 93306; 99284; 99406; A9270-GY; J0780; J1940